=== PATIENT | male | born 1995 | race Caucasian/White ===

== ENCOUNTER 2024-07-18 23:22 | Emergency (ER) | payer BC, OTHER ==
[2024-07-18 23:47] VITALS: BP 129/72; PULSE 65; RESP 20; TEMP 98.1; BMI 22.4
[2024-07-19 01:10] LABS: EPI CELLS 0 /uL (0-25.1); HYALINE CASTS 0 /uL (0-3.1); URINE APPEARANCE CLEAR; URINE BACTERIA 1 /uL (0-1359); URINE BILIRUBIN NEGATIVE (NEGATIVE); URINE COLOR YELLOW; URINE GLUCOSE (UA) NEGATIVE (NEGATIVE); URINE KETONE NEGATIVE (NEGATIVE); URINE LEUK ESTERASE NEGATIVE (NEGATIVE); URINE NITRITE NEGATIVE (NEGATIVE); URINE PROTEIN NEGATIVE (NEGATIVE); URINE RBC 21 /uL (0-23.9); URINE UROBILINOGEN 0.2 mg/dL (0.2-1.0); URINE WBC 0 /uL (0-25.8)
== END 2024-07-19 02:14 | disposition home or self-care (01) ==
LOC: JER 23:22
DX: N50.812 Left testicular pain (principal)
CPT/HCPCS: 76870-TC; 81003; 99284-25